=== PATIENT | male | born 1995 | race Caucasian/White ===

== ENCOUNTER 2024-07-25 17:39 | Inpatient (IN) | payer BC, MEDICAID, SELFPAY ==
[2024-07-25 17:43] VITALS: BP 124/78; PULSE 119; RESP 18; TEMP 37.3; O2SAT 96; BMI 25.8
[2024-07-25 17:50] VITALS: BP 124/78; PULSE 119; RESP 18; TEMP 37.3; O2SAT 96
--- NOTE | 2024-07-25 17:51 | W.ED.PSYCHS ---
HPI - Psych General: Chief Complaint: Psychiatric Symptoms Stated Complaint: MHE Time Seen by Provider: 07/25/24 17:49 Source: EMS Mode of arrival: EMS Limitations: altered mental status History of Present Illness: Patient is a 29-year-old male who arrives to the ED today via EMS for evaluation of schizophrenia and psychosis. Patient states he believes that he is God and that the lights are radiating him. Upon my arrival patient is seated with his eyes closed with his hands together up in the air. He is mute to the majority of my questioning. He randomly will look up at the radha and begin talking and questioning the actions of God. He actively is speaking to things/people that are not there. He reportedly told EMS he has a history of schizophrenia and not taking medications. MD complaint: altered mental status Onset (ago): unknown Related Data Allergies Allergy/AdvReac Type Severity Reaction Status Date / Time Unable to Assess Allergy Unverified 07/25/24 17:48 Review of Systems General: Reports: ROS unobtainable due to mental status Physical Exam Const: COMMON NORMALS: average body habitus, healthy appearing, alert and well nourished EXAM LIMITATIONS: behavioral limitations ORIENTATION/CONSCIOUSNESS: Yes awake Neuro: SENSORIUM/ORIENTATION: Yes alert Psych: APPEARANCE: Yes grossly normal ATTITUDE: Yes bizarre ACTIVITY/MOTOR BEHAVIOR: Yes disorganized behavior THOUGHT PROCESS: disorganized ATTENTION/CONCENTRATION: Yes attention grossly impaired and Yes concentration grossly impaired MEMORY/COGNITION: Yes memory grossly impaired and Yes cognition grossly impaired INSIGHT: Poor insight present (Psych) JUDGEMENT: Poor judgement present (Psych) Course Consultations: Consultation #1: Dr. Ron-accepts to NPU Vital Signs: Vital signs: Vital Signs Temperature 99.2 F 07/25/24 17:50 Pulse Rate 119 H 07/25/24 17:50 Respiratory Rate 18 07/25/24 17:50 Blood Pressure 124/78 07/25/24 17:50 Pulse Oximetry 96 07/25/24 17:50 Oxygen Delivery Me thod Room Air 07/25/24 17:50 MDM - Psych Medical Decision Making Patient will be admitted to NPU once cleared medically for evaluation/treatment of his psychosis. Patient was placed on a 96 hour hold. Differential Diagnosis Likely acute psychosis Medical Records I reviewed the patient's medical records. Lab Data I reviewed the patient's lab results. 07/25/24 19:05 07/25/24 19:05 Laboratory Results WBC 18.47 10^3/uL (3.29-11.43) H 07/25/24 19:05 RBC 5.30 10^6/uL (3.85-5.65) 07/25/24 19:05 Hgb 15.90 g/dL (11.27-16.99) 07/25/24 19:05 Hct 46.4 % (37-53) 07/25/24 19:05 MCV 87.5 fl (82-101) 07/25/24 19:05 MCH 30.0 pg (27-33) 07/25/24 19:05 MCHC 34.3 g/dL (30-55) 07/25/24 19:05 RDW 12.1 % (12.1-15.1) 07/25/24 19:05 Plt Count 326 10^3/cmm (157-399) 07/25/24 19:05 MPV 9.1 fL (7.4-10.4) 07/25/24 19:05 Neut % (Auto) 74.6 % 07/25/24 19:05 Lymph % (Auto) 15.2 % 07/25/24 19:05 [place] % (Auto) 7.6 % 07/25/24 19:05 Eos % (Auto) 1.7 % 07/25/24 19:05 Baso % (Auto) 0.5 % 07/25/24 19:05 Neut # (Auto) 13.78 10^3/uL (1.8-7.7) H 07/25/24 19:05 Lymph # (Auto) 2.8 10^3/uL (0.8-4.8) 07/25/24 19:05 [place] # (Auto) 1.4 10^3/uL (0.2-0.9) H 07/25/24 19:05 Eos # (Auto) 0.3 10^3/uL (0.0-0.8) 07/25/24 19:05 Baso # (Auto) 0.1 10^3/uL (0.0-0.1) 07/25/24 19:05 Nucleated RBC % (auto) 0 % 07/25/24 19:05 Nucleated RBCs # 0.0 /100WBC 07/25/24 19:05 Sodium 142 mmol/L (136-145) 07/25/24 19:05 Potassium 3.9 mmol/L (3.5-5.1) 07/25/24 19:05 Chloride 100 mmol/L (98-107) 07/25/24 19:05 Carbon Dioxide 26 mmol/L (22-29) 07/25/24 19:05 Anion Gap 19.9 (5-19) H 07/25/24 19:05 BUN 16 mg/dL (6-20) 07/25/24 19:05 Creatinine 1.2 mg/dL (0.7-1.2) 07/25/24 19:05 GFR Calculation 72.1 mL/min (90-130) L 07/25/24 19:05 Glucose 99 mg/dL (65-115) 07/25/24 19:05 Calculated Osmolality 295 mOsm/kg (285-295) 07/25/24 19:05 Calcium 10.0 mg/dL (8.5-10.5) 07/25/24 19:05 Total Bilirubin 0.6 mg/dL (0.15-1.2) 07/25/24 19:05 AST 48 U/L (0-40) H 07/25/24 19:05 ALT 37 U/L (0-41) 07/25/24 19:05 Alkaline Phosphatase 128 U/L (40-130) 07/25/24 19:05 Total Protein 8.1 g/dL (6.6-8.7) 07/25/24 19:05 Albumin 4.9 g/dL (3.5-5.2) 07/25/24 19:05 Globulin 3.2 g/dL (1.3-4.6) 07/25/24 19:05 Salicylates < 0.3 mg/dL (3-10) L 07/25/24 19:05 Acetaminophen < 5.0 ug/mL (10-30) L 07/25/24 19:05 Ethyl Alcohol < 10 mg/dL (0-10) 07/25/24 19:05 No radiology studies performed this visit Discharge Plan Discharge Patient Disposition: Admitted As Inpatient Admit Provider: Brody Ron Clinical Impression: Acute psychosis Condition: Stable Coding Level of Care Code ED Configuration Developer for Vinicius Van
[2024-07-25] MEDS: haloperidol inj 5 mg/mL INJ 1 mL IM (18:31)
--- NOTE | 2024-07-25 18:32 | PC.NURSE ---
PATIENT VERY ACTIVE IN ROOM. PATIENT UNWILLING TO SIT STILL FOR BLOOD DRAW. PATIENT STATES THAT I AM GOD. PATIENT GIVEN HALOPERIDOL.
--- NOTE | 2024-07-25 18:40 | PC.NURSE ---
Attempted to read 96 hour hold rights. Patient is currently having auditory and visual hallucinations and is continuing to talk to someone that is not there while attempting to read his rights to him. A copy of rights was given to patient. Patient became agitated and started yelling at the ceiling God why wont you do this to them instead. Patient is incapable of comprehension of rights being served.
[2024-07-25 19:10] LABS: Basophils # 0.1 10^3/uL (0.0-0.1); Basophils % 0.5 %; Eosinophils # 0.3 10^3/uL (0.0-0.8); Eosinophils % 1.7 %; Hematocrit 46.4 % (37-53); Lymphocytes # 2.8 10^3/uL (0.8-4.8); Lymphocytes % 15.2 %; Mean Corpuscular HGB Conc 34.3 g/dL (30-55); Mean Corpuscular Volume 87.5 fl (82-101); Mean Platelet Volume 9.1 fL (7.4-10.4); Monocytes # 1.4 10^3/uL (0.2-0.9); Monocytes % 7.6 %; Neutrophils # 13.78 10^3/uL (1.8-7.7); Neutrophils % 74.6 %; Nucleated Red Blood Cells % 0 %; Platelet Count 326 10^3/cmm (157-399); Red Cell Distribution Width 12.1 % (12.1-15.1); White Blood Count 18.47 10^3/uL (3.29-11.43)
[2024-07-25 19:26] LABS: Alanine Aminotransferase 37 U/L (0-41); Albumin Level 4.9 g/dL (3.5-5.2); Alkaline Phosphatase 128 U/L (40-130); Anion Gap 19.9 (5-19); Aspartate Amino Transferase 48 U/L (0-40); Blood Urea Nitrogen 16 mg/dL (6-20); Carbon Dioxide 26 mmol/L (22-29); Chloride 100 mmol/L (98-107); Creatinine Clr Calc Pharmacy 93.1835; Globulin 3.2 g/dL (1.3-4.6); Glomerular Filtration Rate 72.1 mL/min (90-130); Glucose 99 mg/dL (65-115); Osmolality Calculated 295 mOsm/kg (285-295); Potassium 3.9 mmol/L (3.5-5.1); Sodium 142 mmol/L (136-145); Total Bilirubin 0.6 mg/dL (0.15-1.2); Total Protein 8.1 g/dL (6.6-8.7)
[2024-07-25 19:32] LABS: Acetaminophen < 5.0 ug/mL (10-30); Alcohol Level < 10 mg/dL (0-10); Salicylate < 0.3 mg/dL (3-10)
[2024-07-25 21:16] VITALS: BP 114/73; PULSE 72; RESP 14; TEMP 36.3; O2SAT 98
[2024-07-25 21:28] VITALS: BP 114/73; PULSE 72; RESP 14; O2SAT 98
[2024-07-25 21:35] VITALS: BP 99/60; PULSE 98; RESP 20; O2SAT 98
[2024-07-25 22:00] VITALS: BP 99/60; PULSE 98; RESP 20; O2SAT 98
[2024-07-26 06:00] VITALS: BP 106/67; PULSE 68; RESP 16; O2SAT 100
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
--- NOTE | 2024-07-26 08:55 | PC.NURSE ---
PT GOES TO ROOM AND TRIED TO EVADE RN AND ASSESSMENT QUESTIONS. PT IS EVASIVE WITH QUESTIONS AND ASSESSMENT. DENIES SI/HI AND AVH AT THIS TIME. RATES ANXIETY 0/10 AND DEPRESSION 8/10. REPORTS HE SLEPT WELL LAST NIGHT. DENIES PAIN. PT STATES GOAL TODAY IS TO SLEEP. ALL QUESTIONS ANSWERED AND SUPPORT VOICED.
[2024-07-26 14:00] VITALS: BP 129/96; PULSE 117; RESP 20; TEMP 36.6; O2SAT 98
[2024-07-26 20:27] VITALS: BP 99/70; PULSE 76; RESP 18; TEMP 36.7; O2SAT 97
[2024-07-27 06:00] VITALS: BP 120/75; PULSE 80; RESP 16; TEMP 36.9; O2SAT 98
[2024-07-27] MEDS: nicotine 2 mg Gum BUCCAL (11:13)
[2024-07-27 11:15] LABS: Amphetamines Screen Urine Positive (Negative); Barbiturates Screen Urine Negative (Negative); Benzodiazepines Screen Urine Negative (Negative); Cocaine Screen Urine Negative (Negative); Opiate Screen Urine Negative (Negative); PCP Screen Urine Negative (Negative); THC Screen Urine Positive (Negative)
[2024-07-27 14:00] VITALS: BP 126/92; PULSE 81; RESP 18; TEMP 37.1; O2SAT 95
--- NOTE | 2024-07-27 16:41 | W.PM.NPUPNS ---
Subjective NPU Subjective: Patient presented today reporting that he needed to be discharged and there was no reason for him to be there. He was overly emotional and crying and at times wailing per staff reports and direct observation. He was reporting significant psychotic content as he reported odd beliefs about the son and the wilson and maloney that human beings have for teleportation. He was often not making sense per staff reports which is also seen on interview. He continues to believe there is nothing wrong with him and there is no need for medication. Mental Status Exam MSE Comments: This is an slender, well-developed [place] male in hospital scrubs with limited grooming and eye contact. No abnormal movements except for psychomotor agitation. Cooperative with exam in mild to moderate distress. Speech was slightly increased rate and normal volume. Mood described fine, affect irritable and guarded. Thought process was linear and mostly organized. Thought content: Patient denied suicidal or homicidal ideation , there were no delusions reported but concerns for hyperreligious, grandiose, paranoid or persecutory delusions noted, he denied visual but endorsed auditory hallucinations, but endorsed some situations likely consistent with auditory or visual hallucinations.The patient denies having suicidal thoughts, self-injurious behavior, paranoia, hearing voices, or seeing things. He does not have nightmares or flashbacks. He reports feeling annoyed and believes he was unjustly brought to the hospital. He denies having thoughts of hurting or killing others. Attention and concentration were mostly intact and memory appeared unreliable but none were formally tested. He is alert and oriented x 3. Insight, judgment and impulse control impaired. Vitals/I&O/Wt Last Vital Signs Temp 98.8 F 07/27/24 14:00 Pulse 81 07/27/24 14:00 Resp 18 07/27/24 14:00 BP 126/92 07/27/24 14:00 Pulse Ox 95 07/27/24 14:00 O2 Del Method Room Air 07/25/24 21:35 Weight last 48 hrs Weight 77.111 kg Data NPU 07/25/24 19:05 07/25/24 19:05 A&P Assessment and plan (1) Acute psychosis: (2) History of schizophrenia: (3) Cannabis use disorder: (4) History of ADHD: Plan This is a 29-year-old Citizen [place] male who presented on a 96-hour hold secondary to some praying in public that got noticed for its significant loudness or oddness. The patient has a history of schizophrenia, ADHD, and depression. He is currently off his medication for schizophrenia and expresses a desire to restart it. He denies having schizophrenia and believes he has a direct connection with the spiritual realm. He has a history of drug use and has been to rehab twice. He is currently unemployed and lives with others. 1. Consider antipsychotic 2. Continue every 15 minute observation. 3. Encourage individual, group and milieu therapies. 4. Obtain collateral information on what his baseline actually is. 5. Encourage sober living treatment after discharge at the highest level of care to which he is willing to commit. 6. UDS returned positive for cannabis and methamphetamine. Attestations U Medical Necessity Statement*: Inpatient hospitalization is medically necessary and the clinically appropriate intervention at this time. We will monitor medication to make changes as indicated. His likely length of stay 3-5 days. Coding Level of Care Code Acute Code for [facility] Fw Diagnoses Acute psychosis F23 History of schizophrenia Z86.59 Cannabis use disorder F12.90 History of ADHD Z86.59
[2024-07-27 22:00] VITALS: RESP 16
[2024-07-28 06:00] VITALS: BP 108/68; PULSE 74; RESP 16; O2SAT 97
--- NOTE | 2024-07-28 09:30 | W.PM.NPUPNS ---
Subjective NPU Subjective: Patient presented today reporting that he is not supposed to be here. We discussed the fact that his current trajectory makes his possible discharge on Tuesday unlikely. He ultimately allowed his medications to be restarted after discussion of the risks, benefits and alternatives he understood and agreed to proceed as is documented in this note. He continues to have limited insight per staff reports and direct observation. Mental Status Exam MSE Comments: This is an slender, well-developed [place] male in hospital scrubs with limited grooming and eye contact. No abnormal movements except for significant psychomotor agitation. Cooperative with exam in moderate to extreme distress. Speech was slightly increased rate and normal volume. Mood described fine, affect irritable and guarded. Thought process was linear and mostly organized. Thought content: Patient denied suicidal or homicidal ideation , there were no delusions reported but concerns for hyperreligious, grandiose, paranoid or persecutory delusions noted, he denied visual but endorsed auditory hallucinations, but endorsed some situations likely consistent with auditory or visual hallucinations.The patient denies having suicidal thoughts, self-injurious behavior, paranoia, hearing voices, or seeing things. He does not have nightmares or flashbacks. He reports feeling annoyed and believes he was unjustly brought to the hospital. He denies having thoughts of hurting or killing others. Attention and concentration were mostly intact and memory appeared unreliable but none were formally tested. He is alert and oriented x 3. Insight, judgment and impulse control impaired. Vitals/I&O/Wt Last Vital Signs Temp 98.8 F 07/27/24 14:00 Pulse 74 07/28/24 06:00 Resp 16 07/28/24 06:00 BP 108/68 07/28/24 06:00 Pulse Ox 97 07/28/24 06:00 O2 Del Method Room Air 07/28/24 06:00 Data NPU 07/25/24 19:05 07/25/24 19:05 A&P Assessment and plan (1) Acute psychosis: (2) History of schizophrenia: (3) Cannabis use disorder: (4) History of ADHD: Plan This is a 29-year-old [place] male who presented on a 96-hour hold secondary to some praying in public that got noticed for its significant loudness or oddness. The patient has a history of schizophrenia, ADHD, and depression. He is currently off his medication for schizophrenia and expresses a desire to restart it. He denies having schizophrenia and believes he has a direct connection with the spiritual realm. He has a history of drug use and has been to rehab twice. He is currently unemployed and lives with others. 1. Restarted previous medications. 2. Continue every 15 minute observation. 3. Encourage individual, group and milieu therapies. 4. Obtain collateral information on what his baseline actually is. 5. Encourage sober living treatment after discharge at the highest level of care to which he is willing to commit. 6. UDS returned positive for cannabis and methamphetamine. Attestations U Medical Necessity Statement*: Inpatient hospitalization is medically necessary and the clinically appropriate intervention at this time. We will monitor medication to make changes as indicated. His likely length of stay 4-6 days. Coding Level of Care Code Acute Code for [facility] Fwd Diagnoses Acute psychosis F23 History of schizophrenia Z86.59 Cannabis use disorder F12.90 History of ADHD Z86.59
--- NOTE | 2024-07-28 10:59 | PC.NURSE ---
Patient requesting medications for sleep. This nurse informed patient that we can't give sleeping medications during the day. Patient has been tearful. Patient appears to be comforted by another patient.
--- NOTE | 2024-07-28 12:09 | PC.NURSE ---
This nurse took patients outside. While this patient was outside, patient pointed at the radha and stated, that is not our sun. It is too small to be our sun.
[2024-07-28] MEDS: nicotine 2 mg Gum BUCCAL ×2 (12:32→17:37)
[2024-07-28] MEDS: OLANZapine 5 mg ODT PO (12:50)
[2024-07-28] MEDS: LORazepam 2 mg Tablet PO (13:21)
[2024-07-28 14:00] VITALS: BP 123/85; PULSE 90; RESP 17; TEMP 36.7; O2SAT 99
[2024-07-28] MEDS: OLANZapine 10 mg TABLET PO (21:20)
[2024-07-28] MEDS: hyDROXYzine 25 mg Capsule 50 MG PO (21:22)
[2024-07-28] MEDS: trazodone 50 mg Tablet PO (21:22)
[2024-07-28 21:52] VITALS: BP 105/69; PULSE 80; RESP 17; O2SAT 97
[2024-07-29 06:00] VITALS: BP 97/67; PULSE 82; RESP 16; O2SAT 98
[2024-07-29 14:00] VITALS: BP 134/84; PULSE 100; RESP 18; TEMP 36.6; O2SAT 99
[2024-07-29] MEDS: sertraline 50 mg Tablet PO (14:13)
--- NOTE | 2024-07-29 19:10 | P.NPUPN_ITS ---
Subjective NPU 2 Subjective: Patient presented today reporting that he is feeling pretty good. He was less irritable per staff reports and direct observation. He continued to maintain the same conspiracy theories and beliefs of multiple dimensions, projections and spent most of the time talking about his brother who is a time traveler and that ultimately we agreed to be merged with technology and become [employer]. His behavior lacked the irritability that he did at presentation, but his psychosis continued to be prominent. He denied any side effects to the medications. He continued to focus on discharge and lack insight into his condition. Mental Status Exam 2 MSE Comments: This is an slender, well-developed [place] male in hospital scrubs with adequate grooming and eye contact. No abnormal movements except for psychomotor agitation. Cooperative with exam in mild distress. Speech was slightly increased rate and normal volume. Mood described fine, affect less irritable or guarded. Thought process was linear and mostly organized. Thought content: Patient denied suicidal or homicidal ideation, there were no delusions reported but significant presents of hyperreligious, grandiose, paranoid or persecutory delusions noted, he was full of continued conspiracies about being taken over by AI etc., he did not report visual or auditory hallucinations, but endorsed some situations likely consistent with auditory or visual hallucinations. The patient denies having suicidal thoughts, self-injurious behavior, paranoia, hearing voices, or seeing things. He does not have nightmares or flashbacks. Attention and concentration were mostly intact and memory appeared unreliable but none were formally tested. He is alert and oriented x 3. Insight, judgment and impulse control impaired. Vitals/I&O/Wt Last Vital Signs Temp 97.8 F 07/29/24 14:00 Pulse 100 07/29/24 14:00 Resp 18 07/29/24 14:00 BP 134/84 07/29/24 14:00 Pulse Ox 99 07/29/24 14:00 O2 Del Method Room Air 07/29/24 06:00 Weight last 48 hrs Weight 68.946 kg Data NPU 07/25/24 19:05 07/25/24 19:05 A&P Assessment and plan (1) Acute psychosis: (2) History of schizophrenia: (3) Cannabis use disorder: (4) History of ADHD: Plan This is a 29-year-old [place] male who presented on a 96-hour hold secondary to some praying in public that got noticed for its significant loudness or oddness. The patient has a history of schizophrenia, ADHD, and depression. He is currently off his medication for schizophrenia and expresses a desire to restart it. He denies having schizophrenia and believes he has a direct connection with the spiritual realm. He has a history of drug use and has been to rehab twice. He is currently unemployed and lives with others. 1. Restarted previous medications. May need to consider whether he needs to be switched to a different antipsychotic or whether he should be ultimately placed on long-acting Zyprexa if it proves to be effective. 2. Continue every 15 minute observation. 3. Encourage individual, group and milieu therapies. 4. Obtain collateral information on what his baseline actually is. 5. Encourage sober living treatment after discharge at the highest level of care to which he is willing to commit. 6. UDS returned positive for cannabis and methamphetamine. 7. Will likely need a 21-day hold filed given his level of psychosis. Attestations NPU 2 Medical Necessity Statement*: Inpatient hospitalization is medically necessary and the clinically appropriate intervention at this time. We will monitor medication to make changes as indicated. His likely length of stay 7-10 days. Coding Level of Care Code Acute Code for [facility] Fwd Diagnoses Acute psychosis F23 History of schizophrenia Z86.59 Cannabis use disorder F12.90 History of ADHD Z86.59
[2024-07-29] MEDS: hyDROXYzine 25 mg Capsule 50 MG PO (20:02)
[2024-07-29] MEDS: trazodone 50 mg Tablet PO (20:03)
[2024-07-29] MEDS: OLANZapine 10 mg TABLET PO (20:03)
[2024-07-29 20:04] VITALS: BP 106/68; PULSE 74; RESP 17; TEMP 36.9; O2SAT 98
[2024-07-30 06:00] VITALS: BP 128/90; PULSE 60; RESP 18; TEMP 36.6; O2SAT 97
[2024-07-30] MEDS: sertraline 50 mg Tablet PO (08:32)
[2024-07-30] MEDS: nicotine 2 mg Gum BUCCAL ×2 (12:58→16:58)
[2024-07-30 14:00] VITALS: BP 95/64; PULSE 79; RESP 17; TEMP 37; O2SAT 98
--- NOTE | 2024-07-30 16:21 | P.NPUPN_ITS ---
Subjective NPU 2 Subjective: Patient presented today reporting that he is doing okay. He endorsed significant difficulties with not being able to be at his home but could not seem to understand our concerns about his psychosis. He was very focused on being discharged and gave us some numbers we could reach out to. We agreed that we would talk again in the morning about whether or not there is a plan to discharge him or file for a 21-day hold. He denied any side effects to the medication. Mental Status Exam 2 MSE Comments: This is an slender, well-developed [place] male in hospital scrubs with adequate grooming and eye contact. No abnormal movements except for psychomotor agitation. Cooperative with exam in mild distress. Speech was slightly increased rate and normal volume. Mood described fine, affect less irritable or guarded. Thought process was linear and mostly organized. Thought content: Patient denied suicidal or homicidal ideation, there were no delusions reported but significant presents of hyperreligious, grandiose, paranoid or persecutory delusions noted, he was full of continued conspiracies about being taken over by AI etc., he did not report visual or auditory hallucinations, but endorsed some situations likely consistent with auditory or visual hallucinations. The patient denies having suicidal thoughts, self-injurious behavior, paranoia, hearing voices, or seeing things. He does not have nightmares or flashbacks. Attention and concentration were mostly intact and memory appeared unreliable but none were formally tested. He is alert and oriented x 3. Insight, judgment and impulse control impaired. Vitals/I&O/Wt Last Vital Signs Temp 98.6 F 07/30/24 14:00 Pulse 66 07/30/24 19:56 Resp 18 07/30/24 19:56 BP 130/85 07/30/24 19:56 Pulse Ox 97 07/30/24 19:56 O2 Del Method Room Air 07/29/24 06:00 Weight last 48 hrs Weight 68.946 kg Data NPU 07/25/24 19:05 07/25/24 19:05 A&P Assessment and plan (1) Acute psychosis: (2) History of schizophrenia: (3) Cannabis use disorder: (4) History of ADHD: Plan This is a 29-year-old [place] male who presented on a 96-hour hold secondary to some praying in public that got noticed for its significant loudness or oddness. The patient has a history of schizophrenia, ADHD, and depression. He is currently off his medication for schizophrenia and expresses a desire to restart it. He denies having schizophrenia and believes he has a direct connection with the spiritual realm. He has a history of drug use and has been to rehab twice. He is currently unemployed and lives with others. 1. Restarted previous medications. May need to consider whether he needs to be switched to a different antipsychotic or whether he should be ultimately placed on long-acting Zyprexa if it proves to be effective. 2. Continue every 15 minute observation. 3. Encourage individual, group and milieu therapies. 4. Obtain collateral information on what his baseline actually is. Had some success connecting with resources but none that have contemporaneous information just people at this point did not know him in the past. 5. Encourage sober living treatment after discharge at the highest level of care to which he is willing to commit. 6. UDS returned positive for cannabis and methamphetamine. 7. Will likely need a 21-day hold filed given his level of psychosis. Attestations NPU 2 Medical Necessity Statement*: Inpatient hospitalization is medically necessary and the clinically appropriate intervention at this time. We will monitor medication to make changes as indicated. His likely length of stay 7-10 days. Coding Level of Care Code Acute Code for [facility] Fwd Diagnoses Acute psychosis F23 History of schizophrenia Z86.59 Cannabis use disorder F12.90 History of ADHD Z86.59
[2024-07-30 19:56] VITALS: BP 130/85; PULSE 66; RESP 18; O2SAT 97
[2024-07-30] MEDS: trazodone 50 mg Tablet PO (20:24)
[2024-07-30] MEDS: OLANZapine 10 mg TABLET PO (20:24)
[2024-07-31 06:00] VITALS: BP 109/66; PULSE 74; RESP 16; TEMP 36.7; O2SAT 98
[2024-07-31] MEDS: sertraline 50 mg Tablet PO (09:26)
[2024-07-31] MEDS: nicotine 2 mg Gum BUCCAL (09:26)
[2024-07-31] MEDS: nicotine 4 mg lozenge MUCOUS MEM ×3 (11:52→15:30)
[2024-07-31 14:00] VITALS: BP 140/94; PULSE 88; RESP 16; TEMP 36.8; O2SAT 98
--- NOTE | 2024-07-31 14:21 | PC.NURSE ---
Patient served with [address] paperwork[address] Patient very irritated that he may potentially have to stay here longer per a court order. He has stated multiple times that he is not psychotic and that he is being discriminated against because he is brown . Staff reassured him that we do not discriminate and we are looking out for what is in his best interests. He insisted that the doctor and staff are lying about him being psychotic and initially refusing medications, which is untrue. Patient currently on the phone calling various numbers to ask who he can appeal to to change this. Security present at this time.
[2024-07-31] MEDS: hyDROXYzine 25 mg Capsule 50 MG PO (15:30)
--- NOTE | 2024-07-31 16:08 | P.NPUPN_ITS ---
Subjective NPU 2 Subjective: Patient presented today reporting that he is doing okay. He was finally able to acknowledge that he was using methamphetamine and using other drugs per staff report and direct conversation. He was able to except the fact that he is in a situation where for him to be well he needs to engage in sober living treatment and he is going to work with the social work team to find an appropriate entity or facility to engage in treatment. We discussed the risks, benefits and alternatives of him starting Strattera 40 mg p.o. daily and he understood and agreed to proceed as is documented in this note. He denies any side effects to his medication. Mental Status Exam 2 MSE Comments: This is an slender, well-developed [place] male in hospital scrubs with adequate grooming and eye contact. No abnormal movements except for psychomotor agitation. Cooperative with exam in mild distress. Speech was slightly increased rate and normal volume. Mood described fine, affect less irritable or guarded. Thought process was linear and mostly organized. Thought content: Patient denied suicidal or homicidal ideation, there were no delusions reported but significant presents of hyperreligious, grandiose, paranoid or persecutory delusions noted, he was full of continued conspiracies about being taken over by AI etc., he did not report visual or auditory hallucinations, but endorsed some situations likely consistent with auditory or visual hallucinations. The patient denies having suicidal thoughts, self-injurious behavior, paranoia, hearing voices, or seeing things. He does not have nightmares or flashbacks. Attention and concentration were mostly intact and memory appeared unreliable but none were formally tested. He is alert and oriented x 3. Insight, judgment and impulse control impaired. Vitals/I&O/Wt Last Vital Signs Temp 98.0 F 07/31/24 06:00 Pulse 74 07/31/24 06:00 Resp 16 07/31/24 06:00 BP 109/66 07/31/24 06:00 Pulse Ox 98 07/31/24 06:00 O2 Del Method Room Air 07/29/24 06:00 Data NPU 07/25/24 19:05 07/25/24 19:05 A&P Assessment and plan (1) Acute psychosis: (2) History of schizophrenia: (3) Cannabis use disorder: (4) History of ADHD: Plan This is a 29-year-old Citizen [place] male who presented on a 96-hour hold secondary to some praying in public that got noticed for its significant loudness or oddness. The patient has a history of schizophrenia, ADHD, and depression. He is currently off his medication for schizophrenia and expresses a desire to restart it. He denies having schizophrenia and believes he has a direct connection with the spiritual realm. He has a history of drug use and has been to rehab twice. He is currently unemployed and lives with others. 1. Restarted previous medications. May need to consider whether he needs to be switched to a different antipsychotic or whether he should be ultimately placed on long-acting Zyprexa if it proves to be effective. Start Strattera 40 mg p.o. daily 2. Continue every 15 minute observation. 3. Encourage individual, group and milieu therapies. 4. Obtain collateral information on what his baseline actually is. Had some success connecting with resources but none that have contemporaneous information just people at this point did not know him in the past. 5. Encourage sober living treatment after discharge at the highest level of care to which he is willing to commit. 6. UDS returned positive for cannabis and methamphetamine. 7. Will likely need a 21-day hold filed given his level of psychosis. Filed for 21-day hold. Attestations NPU 2 Medical Necessity Statement*: Inpatient hospitalization is medically necessary and the clinically appropriate intervention at this time. We will monitor medication to make changes as indicated. His likely length of stay 6-9 days. Coding Level of Care Code Acute Code for [facility] Fwd Diagnoses Acute psychosis F23 History of schizophrenia Z86.59 Cannabis use disorder F12.90 History of ADHD Z86.59
[2024-07-31] MEDS: OLANZapine 5 mg ODT PO (17:22)
[2024-07-31] MEDS: OLANZapine 10 mg TABLET PO (20:13)
[2024-07-31] MEDS: trazodone 50 mg Tablet PO (20:13)
[2024-07-31 20:24] VITALS: BP 123/77; PULSE 18; RESP 18; TEMP 37; O2SAT 100
[2024-08-01 06:00] VITALS: BP 111/71; PULSE 66; RESP 18; TEMP 36.5; O2SAT 98
[2024-08-01] MEDS: sertraline 50 mg Tablet PO (08:01)
[2024-08-01] MEDS: atomoxetine 40 mg Capsule PO (08:05)
[2024-08-01] MEDS: nicotine 4 mg lozenge MUCOUS MEM ×5 (08:33→19:56)
[2024-08-01 14:00] VITALS: BP 119/83; PULSE 95; RESP 18; TEMP 36.7; O2SAT 98
--- NOTE | 2024-08-01 14:00 | W.PM.NPUPNS ---
Subjective NPU Subjective: Patient presented today reporting that he is doing fine. He reports that he will not be going to the 21-day hold hearing today. He did endorse doing some research and determining that he can go to a correction like [facility] [employer] [facility] We discussed the fact that we did not think that was a good idea and that he needs to first get better from the standpoint of his psychosis and second he needs some greater structure than a correction would provide. We discussed that we would talk again later after the hearing. Mental Status Exam MSE Comments: This is an slender, well-developed [place] male in hospital scrubs with adequate grooming and eye contact. No abnormal movements except for psychomotor agitation. Cooperative with exam in mild distress. Speech was slightly increased rate and normal volume. Mood described fine, affect less irritable or guarded. Thought process was linear and mostly organized. Thought content: Patient denied suicidal or homicidal ideation, there were no delusions reported but significant signs of hyperreligious, grandiose, paranoid or persecutory delusions noted, he was full of continued conspiracies about being taken over by AI etc., he did not report visual or auditory hallucinations, but endorsed some situations likely consistent with auditory or visual hallucinations. The patient denies having suicidal thoughts, self-injurious behavior, paranoia, hearing voices, or seeing things. He does not have nightmares or flashbacks. Attention and concentration were mostly intact and memory appeared unreliable but none were formally tested. He is alert and oriented x 3. Insight, judgment and impulse control impaired. Vitals/I&O/Wt Last Vital Signs Temp 98.0 F 08/01/24 14:00 Pulse 95 08/01/24 14:00 Resp 18 08/01/24 14:00 BP 119/83 08/01/24 14:00 Pulse Ox 98 08/01/24 14:00 O2 Del Method Room Air 08/01/24 06:00 Data NPU 07/25/24 19:05 07/25/24 19:05 A&P Assessment and plan (1) Acute psychosis: (2) History of schizophrenia: (3) Cannabis use disorder: (4) History of ADHD: Plan This is a 29-year-old [place] male who presented on a 96-hour hold secondary to some praying in public that got noticed for its significant loudness or oddness. The patient has a history of schizophrenia, ADHD, and depression. He is currently off his medication for schizophrenia and expresses a desire to restart it. He denies having schizophrenia and believes he has a direct connection with the spiritual realm. He has a history of drug use and has been to rehab twice. He is currently unemployed and lives with others. 1. Restarted previous medications. May need to consider whether he needs to be switched to a different antipsychotic or whether he should be ultimately placed on long-acting Zyprexa if it proves to be effective. Started Strattera 40 mg p.o. daily 2. Continue every 15 minute observation. 3. Encourage individual, group and milieu therapies. 4. Obtain collateral information on what his baseline actually is. Had some success connecting with resources but none that have contemporaneous information just people at this point did not know him in the past. 5. Encourage sober living treatment after discharge at the highest level of care to which he is willing to commit. 6. UDS returned positive for cannabis and methamphetamine. 7. Will likely need a 21-day hold filed given his level of psychosis. Filed for 21-day hold. 21-day hold hearing today. Attestations U Medical Necessity Statement*: Inpatient hospitalization is medically necessary and the clinically appropriate intervention at this time. We will monitor medication to make changes as indicated. His likely length of stay 6-9 days. Coding Level of Care Code Acute Code for [facility] Fwd Diagnoses Acute psychosis F23 History of schizophrenia Z86.59 Cannabis use disorder F12.90 History of ADHD Z86.59
[2024-08-01] MEDS: trazodone 50 mg Tablet PO (20:46)
[2024-08-01] MEDS: OLANZapine 10 mg TABLET PO (20:46)
[2024-08-01] MEDS: OLANZapine 5 mg ODT PO (21:11)
[2024-08-02 06:00] VITALS: BP 112/72; PULSE 86; RESP 18; O2SAT 99
--- NOTE | 2024-08-02 08:55 | P.NPUPN_ITS ---
Subjective NPU 2 Subjective: Patient presents today reporting that he is fine. He continues to ride a roller coaster with moments of clear conversation about the challenges of his situation and the need for substance abuse treatment followed by very paranoid and aggressive moments of feeling that everyone is against him per staff reports and direct observation. This morning he reports that he is sorry for his aggressive paranoid behaviors last night but then immediately went to the point of contention which is that he should be discharged to the programming right away because he is fine. We discussed wanting to see him have greater stability before we discharged him any program. He denied any side effects to the medication. Mental Status Exam 2 MSE Comments: This is an slender, well-developed [place] male in hospital scrubs with adequate grooming and eye contact. No abnormal movements except for psychomotor agitation. Cooperative with exam in mild distress. Speech was slightly increased rate and normal volume. Mood described apologetic for my outburst last night, affect less irritable or guarded. Thought process was linear and mostly organized. Thought content: Patient denied suicidal or homicidal ideation, there were no delusions reported but significant signs of hyperreligious, grandiose, paranoid or persecutory delusions noted, he was full of continued conspiracies about being taken over by AI etc., he did not report visual or auditory hallucinations, but endorsed some situations likely consistent with auditory or visual hallucinations. The patient denies having suicidal thoughts, self-injurious behavior, paranoia, hearing voices, or seeing things. He does not have nightmares or flashbacks. Attention and concentration were mostly intact and memory appeared unreliable but none were formally tested. He is alert and oriented x 3. Insight, judgment and impulse control impaired. Vitals/I&O/Wt Last Vital Signs Temp 98.0 F 08/01/24 14:00 Pulse 86 08/02/24 06:00 Resp 18 08/02/24 06:00 BP 112/72 08/02/24 06:00 Pulse Ox 99 08/02/24 06:00 O2 Del Method Room Air 08/01/24 06:00 Data NPU 07/25/24 19:05 07/25/24 19:05 A&P Assessment and plan (1) Acute psychosis: (2) History of schizophrenia: (3) Cannabis use disorder: (4) History of ADHD: Plan This is a 29-year-old [place]alese male who presented on a 96-hour hold secondary to some praying in public that got noticed for its significant loudness or oddness. The patient has a history of schizophrenia, ADHD, and depression. He is currently off his medication for schizophrenia and expresses a desire to restart it. He denies having schizophrenia and believes he has a direct connection with the spiritual realm. He has a history of drug use and has been to rehab twice. He is currently unemployed and lives with others. 1. Restarted previous medications. May need to consider whether he needs to be switched to a different antipsychotic or whether he should be ultimately placed on long-acting Zyprexa if it proves to be effective. Started Strattera 40 mg p.o. daily 2. Continue every 15 minute observation. 3. Encourage individual, group and milieu therapies. 4. Obtain collateral information on what his baseline actually is. Had some success connecting with resources but none that have contemporaneous information just people at this point did not know him in the past. 5. Encourage sober living treatment after discharge at the highest level of care to which he is willing to commit. 6. UDS returned positive for cannabis and methamphetamine. 7. Will likely need a 21-day hold filed given his level of psychosis. Filed for 21-day hold. Patient placed on 21-day hold yesterday. Attestations NPU 2 Medical Necessity Statement*: Inpatient hospitalization is medically necessary and the clinically appropriate intervention at this time. We will monitor medication to make changes as indicated. His likely length of stay 5-8 days. Coding Level of Care Code Acute Code for [facility] Fwd Diagnoses Acute psychosis F23 History of schizophrenia Z86.59 Cannabis use disorder F12.90 History of ADHD Z86.59
--- NOTE | 2024-08-02 09:00 | PC.NURSE ---
PT SITTING ON BED, NOTED TO HAVE ANIMATED SPEECH AND HAS NOTHING GOOD TO SAY ABOUT DR. MCKEON. PT STATES HE IS FORCING ME INTO REHAB SO HE CAN GET A BIG FAT CHECK. I CALLED 911 LAST NIGHT AND TOLD THEM HE WAS HOLDING ME HOSTAGE. PT WAS INFORMED THAT DR. MCKEON GETS NO KICK BACK FROM REHABS AND IS NOT AFFILIATED WITH ANY REHABS AROUND HERE. PT STATES WELL HE'S YOUR BOSS AND PAYS YOUR BILLS SO I'M SURE YOU CAN'T SAY ANYTHING. DENIES PAIN. DENIES SI/HI AND AVH AT THIS TIME. RATES ANXIETY AND DEPRESSION 0/10. PT STATES I KNOW DR. MCKEON IS TALKING ABOUT ME TO OTHER PATIENTS TOO BUT HE SAYS HE ISN'T. PT WAS EDUCATED THAT NONE OF THE STAFF CAN TALK TO PATIENTS ABOUT OTHER PATIENTS. PT IS NOTED TO HAVE FAST, RAPID ANIMATED SPEECH. PT STATES GOAL FOR THE DAY IS TO CONTACT THE PATIENT RIGHTS PEOPLE ABOUT DR. MCKEON. PT WAS INFORMED THAT IT IS HIS RIGHT TO REPORT ANYTHING AND WAS GIVEN THE PATIENT RIGHTS NUMBER. ALL QUESTIONS ANSWERED AND SUPPORT WAS VOICED.
[2024-08-02] MEDS: atomoxetine 40 mg Capsule PO (09:01)
[2024-08-02] MEDS: nicotine 4 mg lozenge MUCOUS MEM ×5 (09:02→18:50)
[2024-08-02] MEDS: sertraline 50 mg Tablet PO (09:02)
[2024-08-02] MEDS: hyDROXYzine 25 mg Capsule 50 MG PO (09:02)
[2024-08-02 14:00] VITALS: BP 137/94; PULSE 106; RESP 18; TEMP 36.7; O2SAT 98
[2024-08-02 19:20] VITALS: BP 128/78; PULSE 120; RESP 17; TEMP 37.1; O2SAT 98
[2024-08-02] MEDS: blistex lip oint 7 gm Tube 1 APPLIC TOPICAL (19:21)
[2024-08-02] MEDS: trazodone 50 mg Tablet PO (20:08)
[2024-08-02] MEDS: OLANZapine 10 mg TABLET PO (20:08)
[2024-08-03] MEDS: calcium carbonate 500 mg Chew Tablet 1000 MG PO (00:56)
--- NOTE | 2024-08-03 06:01 | PC.NURSE ---
pt ref vs resp 15
--- NOTE | 2024-08-03 06:41 | P.NPUPN_ITS ---
Subjective NPU 2 Subjective: Patient presented today reporting that he is frustrated with being kept in the hospital. We continue to discuss his continued paranoia and lingering symptoms and his challenges outside the hospital when he is on methamphetamine leading to the legal charges in the protective order that his mother has. He continues to lack insight and believes that he will be able to not do what he has done for the past 12 to 14 years just by saying that he is done and not having the structure necessary around him to help manage his mercurial nature. He denied any side effects of the medications and we continue to discuss the possibility for the need to switch to a mood stabilizer/antipsychotic with a long-acting injectable as part of the program. Mental Status Exam 2 MSE Comments: This is an slender, well-developed [place] male in hospital scrubs with adequate grooming and eye contact. No abnormal movements except for psychomotor agitation. Cooperative with exam in mild distress. Speech was slightly increased rate and normal volume. Mood described apologetic for my outburst last night, affect less irritable or guarded. Thought process was linear and mostly organized. Thought content: Patient denied suicidal or homicidal ideation, there were no delusions reported but significant signs of hyperreligious, grandiose, paranoid or persecutory delusions noted, he was full of continued conspiracies about being taken over by AI etc., he did not report visual or auditory hallucinations, but endorsed some situations likely consistent with auditory or visual hallucinations. The patient denies having suicidal thoughts, self-injurious behavior, paranoia, hearing voices, or seeing things. He does not have nightmares or flashbacks. Attention and concentration were mostly intact and memory appeared unreliable but none were formally tested. He is alert and oriented x 3. Insight, judgment and impulse control impaired. Vitals/I&O/Wt Last Vital Signs Temp 98.8 F 08/02/24 19:20 Pulse 120 H 08/02/24 19:20 Resp 17 08/02/24 19:20 BP 128/78 08/02/24 19:20 Pulse Ox 98 08/02/24 19:20 O2 Del Method Room Air 08/02/24 19:20 Data NPU 07/25/24 19:05 07/25/24 19:05 A&P Assessment and plan (1) Acute psychosis: (2) History of schizophrenia: (3) Cannabis use disorder: (4) History of ADHD: Plan This is a 29-year-old [place] male who presented on a 96-hour hold secondary to some praying in public that got noticed for its significant loudness or oddness. The patient has a history of schizophrenia, ADHD, and depression. He is currently off his medication for schizophrenia and expresses a desire to restart it. He denies having schizophrenia and believes he has a direct connection with the spiritual realm. He has a history of drug use and has been to rehab twice. He is currently unemployed and lives with others. 1. Restarted previous medications. May need to consider whether he needs to be switched to a different antipsychotic or whether he should be ultimately placed on long-acting Zyprexa if it proves to be effective. Started Strattera 40 mg p.o. daily 2. Continue every 15 minute observation. 3. Encourage individual, group and milieu therapies. 4. Obtain collateral information on what his baseline actually is. Had some success connecting with resources but none that have contemporaneous information just people at this point did not know him in the past. 5. Encourage sober living treatment after discharge at the highest level of care to which he is willing to commit. 6. UDS returned positive for cannabis and methamphetamine. 7. Will likely need a 21-day hold filed given his level of psychosis. Filed for 21-day hold. Patient placed on 21-day hold yesterday. Attestations NPU 2 Medical Necessity Statement*: Inpatient hospitalization is medically necessary and the clinically appropriate intervention at this time. We will monitor medication to make changes as indicated. His likely length of stay 5-8 days. Coding Level of Care Code Acute Code for [facility] Fwd Diagnoses Acute psychosis F23 History of schizophrenia Z86.59 Cannabis use disorder F12.90 History of ADHD Z86.59
[2024-08-03] MEDS: sertraline 50 mg Tablet PO (08:24)
[2024-08-03] MEDS: atomoxetine 40 mg Capsule PO (08:24)
[2024-08-03] MEDS: nicotine 4 mg lozenge MUCOUS MEM ×5 (08:27→19:37)
[2024-08-03 14:00] VITALS: BP 124/80; PULSE 111; RESP 18; TEMP 37.1; O2SAT 98
[2024-08-03] MEDS: OLANZapine 10 mg TABLET PO (19:31)
[2024-08-03] MEDS: trazodone 50 mg Tablet PO (19:37)
[2024-08-03 20:44] VITALS: BP 143/83; PULSE 102; RESP 18; TEMP 36.2; O2SAT 98
[2024-08-04 06:00] VITALS: BP 125/80; PULSE 84; RESP 16; TEMP 36.4; O2SAT 100
--- NOTE | 2024-08-04 07:42 | W.PM.NPUPNS ---
Subjective NPU Subjective: Patient presented today reporting that he is doing well and continues to lobby for discharge. He really struggled with self-control and ability to keep himself out of the angry conspiratorial talk per staff and direct observation. He continues on the theme of him being kept in the hospital secondary to people receiving kicked back and having extra incentive for people going to treatment programs for reasons other than getting treatment. We continue to discuss Dr. Flores coming and making independent decisions about his discharge. He continues to query about what would happen if some program said no and could he just go [place]. We continued to discuss the [place] at this point in his recovery. He continued to deny any side effects to his medication. Mental Status Exam MSE Comments: This is an slender, well-developed Ethiopian male in hospital scrubs with adequate grooming and eye contact. No abnormal movements except for psychomotor agitation. Cooperative with exam in mild to moderate distress. Speech was slightly increased rate and normal volume. Mood described as okay, affect less irritable or guarded. Thought process was linear and mostly organized. Thought content: Patient denied suicidal or homicidal ideation, there were no delusions reported but less signs of hyperreligious, grandiose, paranoid or persecutory delusions noted, he did not report visual or auditory hallucinations. The patient denies having suicidal thoughts, self-injurious behavior, paranoia, hearing voices, or seeing things. He does not have nightmares or flashbacks. Attention and concentration were mostly intact and memory appeared unreliable but none were formally tested. He is alert and oriented x 3. Insight, judgment and impulse control impaired. Vitals/I&O/Wt Last Vital Signs Temp 97.5 F L 08/04/24 06:00 Pulse 84 08/04/24 06:00 Resp 16 08/04/24 06:00 BP 125/80 08/04/24 06:00 Pulse Ox 100 08/04/24 06:00 O2 Del Method Room Air 08/02/24 19:20 Data NPU 07/25/24 19:05 07/25/24 19:05 A&P Assessment and plan (1) Acute psychosis: (2) History of schizophrenia: (3) Cannabis use disorder: (4) History of ADHD: Plan This is a 29-year-old Ethiopian male who presented on a 96-hour hold secondary to some praying in public that got noticed for its significant loudness or oddness. The patient has a history of schizophrenia, ADHD, and depression. He is currently off his medication for schizophrenia and expresses a desire to restart it. He denies having schizophrenia and believes he has a direct connection with the spiritual realm. He has a history of drug use and has been to rehab twice. He is currently unemployed and lives with others. 1. Restarted previous medications. May need to consider whether he needs to be switched to a different antipsychotic or whether he should be ultimately placed on long-acting Zyprexa if it proves to be effective. Started Strattera 40 mg p.o. daily. Will increase to 80 mg prior to discharge 2. Continue every 15 minute observation. 3. Encourage individual, group and milieu therapies. 4. Obtain collateral information on what his baseline actually is. Had some success connecting with resources and significant reports of addiction going back years and recent [facility] at his [facility] reports he has been really unstable and they are willing to help him but they need him to not be psychotic and hopefully engage in treatment so that they can assist him in his sobriety. 5. Encourage sober living treatment after discharge at the highest level of care to which he is willing to commit. 6. UDS returned positive for cannabis and methamphetamine. 7. Will likely need a 21-day hold filed given his level of psychosis. Filed for 21-day hold. Patient placed on 21-day hold yesterday. Attestations NPU Medical Necessity Statement*: Inpatient hospitalization is medically necessary and the clinically appropriate intervention at this time. We will monitor medication to make changes as indicated. His likely length of stay 3-7 days. Coding Level of Care Code Acute Code for [facility] Fwd Diagnoses Acute psychosis F23 History of schizophrenia Z86.59 Cannabis use disorder F12.90 History of ADHD Z86.59
[2024-08-04] MEDS: nicotine 4 mg lozenge MUCOUS MEM ×5 (07:45→19:35)
[2024-08-04] MEDS: sertraline 50 mg Tablet PO (08:45)
[2024-08-04] MEDS: atomoxetine 40 mg Capsule PO (08:45)
[2024-08-04 14:00] VITALS: BP 130/88; PULSE 103; RESP 16; TEMP 36.6; O2SAT 98
[2024-08-04] MEDS: trazodone 50 mg Tablet PO ×2 (20:43→22:13)
[2024-08-04] MEDS: hyDROXYzine 25 mg Capsule 50 MG PO (20:43)
[2024-08-04 20:46] VITALS: BP 131/63; PULSE 90; RESP 18; O2SAT 99
[2024-08-04] MEDS: OLANZapine 10 mg TABLET PO (20:46)
[2024-08-05 06:00] VITALS: BP 127/70; PULSE 91; RESP 17; TEMP 36.6; O2SAT 99
[2024-08-05] MEDS: atomoxetine 40 mg Capsule PO (08:12)
[2024-08-05] MEDS: sertraline 50 mg Tablet PO (08:12)
[2024-08-05] MEDS: nicotine 4 mg lozenge MUCOUS MEM ×5 (08:25→19:13)
[2024-08-05 13:56] VITALS: BP 121/79; PULSE 99; RESP 16; TEMP 37.1; O2SAT 99
--- NOTE | 2024-08-05 17:30 | P.NPUPN_ITS ---
Subjective NPU 2 Subjective: The patient is a 29-year-old male with a history of methamphetamine abuse and psychosis who continue to support the idea of wanting to get clean. He had endorsed having success with managing a plan to live and stay in [place] in order to maintain his sobriety. He had stated that he felt better on his current medications. He reported no sleep disturbance. He had acknowledged in the past having been psychotic but denied any paranoia currently. He had continued to have some thoughts about there being conspiracies but minimized them during the interview. He had expressed interest in digital therapeutic applications for treating methamphetamine dependence. He reported no current depression. He had reported a history of ADHD. Patient was redirectable on the milieu. Mental Status Exam 2 MSE Comments: This is an slender, well-developed Citizen [place] male in hospital scrubs with adequate grooming and eye contact. No abnormal movements with no psychomotor agitation or psychomotor retardation. He was cooperative with exam in mild to moderate distress. Speech was normal in rate and normal volume. Mood described as better., His affect was less irritable or guarded. Thought process was linear and mostly organized. Thought content: Patient denied suicidal or homicidal ideation, there were no delusions reported and some evidence of mild paranoia and ideas of reference He did not report visual or auditory hallucinations. The patient denies having suicidal thoughts, self-injurious behavior, paranoia, hearing voices, or seeing things. He does not have nightmares or flashbacks. Attention and concentration were mostly intact and memory appeared unreliable but none were formally tested. He is alert and oriented x 3. Insight was limited and judgment and impulse control were impaired. Vitals/I&O/Wt Last Vital Signs Temp 98.8 F 08/05/24 13:56 Pulse 99 08/05/24 13:56 Resp 16 08/05/24 13:56 BP 121/79 08/05/24 13:56 Pulse Ox 99 08/05/24 13:56 O2 Del Method Room Air 08/05/24 13:56 Weight last 48 hrs Weight 72.665 kg Data NPU 07/25/24 19:05 07/25/24 19:05 A&P Assessment and plan (1) Acute psychosis: (2) History of schizophrenia: (3) Cannabis use disorder: (4) History of ADHD: Plan This is a 29-year-old Citizen Of [place] male who presented on a 96-hour hold secondary to some praying in public that got noticed for its significant loudness or oddness. The patient has a history of schizophrenia, ADHD, and depression. He is currently off his medication for schizophrenia and expresses a desire to restart it. He denies having schizophrenia and believes he has a direct connection with the spiritual realm. He has a history of drug use and has been to rehab twice. He is currently unemployed and lives with others. 1. Restarted previous medications. May need to consider whether he needs to be switched to a different antipsychotic or whether he should be ultimately placed on long-acting Zyprexa if it proves to be effective. Continue Strattera at 40 mg p.o. daily with titration to dose of 80mg upon discharge. Continue zoloft 50mg daily and zyprexa 10mg at night as prescribed. 2. Continue every 15 minute observation. 3. Encourage individual, group and milieu therapies. 4. Obtain collateral information on what his baseline actually is. Had some success connecting with resources and significant reports of addiction going back years and recent [facility] at his [employer] reports he has been really unstable and they are willing to help him but they need him to not be psychotic and hopefully engage in treatment so that they can assist him in his sobriety. 5. Encourage sober living treatment after discharge at the highest level of care to which he is willing to commit. 6. UDS returned positive for cannabis and methamphetamine. 7. Will likely need a 21-day hold filed given his level of psychosis. Filed for 21-day hold. Patient placed on 21-day hold yesterday. Attestations NPU 2 Medical Necessity Statement*: Inpatient hospitalization is medically necessary and the clinically appropriate intervention at this time. We will monitor medication to make changes as indicated. His likely length of stay 3-5 days. Coding Level of Care Code Acute Code for [facility] Fwd Diagnoses Acute psychosis F23 History of schizophrenia Z86.59 Cannabis use disorder F12.90 History of ADHD Z86.59
[2024-08-05] MEDS: OLANZapine 10 mg TABLET PO (20:11)
[2024-08-05] MEDS: trazodone 50 mg Tablet PO (20:11)
[2024-08-05 20:12] VITALS: BP 137/97; PULSE 99; RESP 18; O2SAT 99
[2024-08-06 06:00] VITALS: BP 127/77; PULSE 102; RESP 18; TEMP 36.6; O2SAT 98
[2024-08-06] MEDS: sertraline 50 mg Tablet PO (08:24)
[2024-08-06] MEDS: atomoxetine 40 mg Capsule PO (08:24)
[2024-08-06] MEDS: nicotine 21 mg Patch 1 PATCH TRANSDERMA (08:25)
--- NOTE | 2024-08-06 09:22 | PC.NURSE ---
Patient removed nicotine patch at 0859. Patient said that he does not like how it makes him feel. This nurse disposed of patch in the appropriate receptacle. Patient can now have nicotine gum or lozenge at 1059.
[2024-08-06] MEDS: nicotine 4 mg lozenge MUCOUS MEM ×4 (11:46→21:38)
[2024-08-06 14:00] VITALS: BP 126/87; PULSE 110; RESP 16; TEMP 37.5; O2SAT 99
--- NOTE | 2024-08-06 16:51 | W.PM.NPUPNS ---
Subjective NPU Subjective: The patient is a 29-year-old male with a history of methamphetamine abuse and psychosis. The patient continued to insist on having desire to leave here today. He had reported that his interview with stephane robert did not appear to go well due to differences in cheondoism. He reported having good support from his gnosticism. He had alluded to the belief that the treatment team was keeping him here in order to burn some additional pain. He had reported no side effects and willingness to continue to take his medications. He had continued to minimize having any issues other than problems with maintaining sobriety from methamphetamine. Mental Status Exam MSE Comments: This is an slender, well-developed [place] male in hospital scrubs with adequate grooming and eye contact. No abnormal movements with mild psychomotor agitation. He was cooperative with exam in mild to moderate distress. Speech was normal in rate and normal volume. Mood described as better., His affect was more irritable today. Thought process was linear and mostly organized. Thought content: Patient denied suicidal or homicidal ideation, there were no delusions reported and some evidence of mild paranoia and ideas of reference He did not report visual or auditory hallucinations. The patient denies having suicidal thoughts, self-injurious behavior, paranoia, hearing voices, or seeing things. He does not have nightmares or flashbacks. Attention and concentration were mostly intact and memory appeared unreliable but none were formally tested. He is alert and oriented x 3. Insight was limited and judgment and impulse control were impaired. Vitals/I&O/Wt Last Vital Signs Temp 99.5 F 08/06/24 14:00 Pulse 110 H 08/06/24 14:00 Resp 16 08/06/24 14:00 BP 126/87 08/06/24 14:00 Pulse Ox 99 08/06/24 14:00 O2 Del Method Room Air 08/06/24 14:00 Weight last 48 hrs Weight 72.665 kg Data NPU 07/25/24 19:05 07/25/24 19:05 A&P Assessment and plan (1) Acute psychosis: (2) History of schizophrenia: (3) Cannabis use disorder: (4) History of ADHD: Plan This is a 29-year-old [place] male who presented on a 96-hour hold secondary to some praying in public that got noticed for its significant loudness or oddness. The patient has a history of schizophrenia, ADHD, and depression. He is currently off his medication for schizophrenia and expresses a desire to restart it. He denies having schizophrenia and believes he has a direct connection with the spiritual realm. He has a history of drug use and has been to rehab twice. He is currently unemployed and lives with others. 1. Restarted previous medications. May need to consider whether he needs to be switched to a different antipsychotic or whether he should be ultimately placed on long-acting Zyprexa if it proves to be effective. Increase Strattera to 60mg daily. Continue zoloft 50mg daily and increase zyprexa to 15mg at night as prescribed. 2. Continue every 15 minute observation. 3. Encourage individual, group and milieu therapies. 4. Obtain collateral information on what his baseline actually is. Had some success connecting with resources and significant reports of addiction going back years and recent [facility] at his gnosticism reports he has been really unstable and they are willing to help him but they need him to not be psychotic and hopefully engage in treatment so that they can assist him in his sobriety. 5. Encourage sober living treatment after discharge at the highest level of care to which he is willing to commit. 6. UDS returned positive for cannabis and methamphetamine. 7. Patient on 21 day hold. Attestations NPU Medical Necessity Statement*: Inpatient hospitalization is medically necessary and the clinically appropriate intervention at this time. We will monitor medication to make changes as indicated. His likely length of stay 3-5 days. Coding Level of Care Code Acute Code for [facility] Fwd Diagnoses Acute psychosis F23 History of schizophrenia Z86.59 Cannabis use disorder F12.90 History of ADHD Z86.59
[2024-08-06 19:39] VITALS: BP 139/81; PULSE 113; RESP 18; TEMP 37.1; O2SAT 98
[2024-08-06] MEDS: OLANZapine 10 mg TABLET 15 MG PO (20:26)
[2024-08-06] MEDS: trazodone 50 mg Tablet PO (20:26)
[2024-08-07 06:00] VITALS: BP 130/85; PULSE 96; RESP 18; TEMP 36.6; O2SAT 98
[2024-08-07] MEDS: nicotine 4 mg lozenge MUCOUS MEM ×5 (08:16→19:37)
[2024-08-07] MEDS: atomoxetine 40 mg Capsule 80 MG PO (09:03)
[2024-08-07] MEDS: sertraline 50 mg Tablet PO (09:03)
[2024-08-07 14:00] VITALS: BP 132/86; PULSE 114; RESP 17; TEMP 36.4; O2SAT 97
--- NOTE | 2024-08-07 16:26 | P.NPUPN_ITS ---
Subjective NPU 2 Subjective: The patient is a 29-year-old male with a history of methamphetamine abuse and psychosis. Patient reports he has been doing better. He had requested to leave today with a peer that had been discharged. He had not been accepted to [facility] and was agreeable to considering discharge tomorrow with his current latter day group that allowed him to stay briefly while attempting to get a job and maintain sobriety. He minimized any concerns regarding methamphetamine use. He had remained somewhat intrusive on the milieu but was ultimately more redirectable. He reported desire to remain compliant with his medications upon discharge. He had continued to minimize having any issues other than problems with maintaining sobriety from methamphetamine. Mental Status Exam 2 MSE Comments: This is an slender, well-developed [place] male in hospital scrubs with adequate grooming and eye contact. No abnormal movements with mild psychomotor activation.. He was cooperative with exam in mild to moderate distress. Speech was normal in rate and normal volume. Mood described as fine., His affect was more irritable today. Thought process was linear and mostly organized. Thought content: Patient denied suicidal or homicidal ideation, there were no delusions reported and some evidence of mild paranoia and ideas of reference He did not report visual or auditory hallucinations. The patient denies having suicidal thoughts, self-injurious behavior, paranoia, hearing voices, or seeing things. He does not have nightmares or flashbacks. Attention and concentration were mostly intact and memory appeared unreliable but none were formally tested. He is alert and oriented x 3. Insight was poor and judgment and impulse control were impaired. Vitals/I&O/Wt Last Vital Signs Temp 97.6 F 08/07/24 14:00 Pulse 114 H 08/07/24 14:00 Resp 17 08/07/24 14:00 BP 132/86 08/07/24 14:00 Pulse Ox 97 08/07/24 14:00 O2 Del Method Room Air 08/07/24 06:00 Data NPU 07/25/24 19:05 07/25/24 19:05 A&P Assessment and plan (1) Acute psychosis: (2) History of schizophrenia: (3) Cannabis use disorder: (4) History of ADHD: Plan This is a 29-year-old [place] male who presented on a 96-hour hold secondary to some praying in public that got noticed for its significant loudness or oddness. The patient has a history of schizophrenia, ADHD, and depression. He is currently off his medication for schizophrenia and expresses a desire to restart it. He denies having schizophrenia and believes he has a direct connection with the spiritual realm. He has a history of drug use and has been to rehab twice. He is currently unemployed and lives with others. 1. Restarted previous medications. Continue Strattera to 60mg daily. Continue zoloft 50mg daily and continue zyprexa 15mg at night as prescribed. 2. Continue every 15 minute observation. 3. Encourage individual, group and milieu therapies. 4. Obtain collateral information on what his baseline actually is. Had some success connecting with resources and significant reports of addiction going back years and recent [facility] at his latter day reports he has been really unstable and they are willing to help him but they need him to not be psychotic and hopefully engage in treatment so that they can assist him in his sobriety. 5. Encourage sober living treatment after discharge at the highest level of care to which he is willing to commit. 6. UDS returned positive for cannabis and methamphetamine. 7. Patient on 21 day hold; likely discharge tommorow. Attestations NPU 2 Medical Necessity Statement*: Inpatient hospitalization is medically necessary and the clinically appropriate intervention at this time. We will monitor medication to make changes as indicated. His likely length of stay 1-2 days. Coding Level of Care Code Acute Code for [facility] Fwd Diagnoses Acute psychosis F23 History of schizophrenia Z86.59 Cannabis use disorder F12.90 History of ADHD Z86.59
[2024-08-07 19:19] VITALS: BP 125/76; PULSE 103; RESP 16; TEMP 36.9; O2SAT 97
[2024-08-07] MEDS: OLANZapine 10 mg TABLET 15 MG PO (19:36)
[2024-08-07] MEDS: trazodone 50 mg Tablet PO (19:37)
[2024-08-08 06:00] VITALS: BP 130/75; PULSE 98; RESP 18; TEMP 36.8; O2SAT 99
[2024-08-08] MEDS: nicotine 4 mg lozenge MUCOUS MEM ×2 (06:50→10:56)
[2024-08-08] MEDS: sertraline 50 mg Tablet PO (08:28)
[2024-08-08] MEDS: atomoxetine 40 mg Capsule 80 MG PO (08:29)
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
[2024-08-08 11:26] VITALS: BP 130/75; PULSE 98; RESP 18; TEMP 36.8; O2SAT 99
== END 2024-08-08 12:07 | disposition home or self-care (01) | DRG 885 ==
LOC: ER 18:33 → NP 19:49
PROVIDERS: Admitting Provider Psychiatry & Neurology Psychiatry; Emergency Provider Physician Assistant; Visit Provider Psychiatry & Neurology Psychiatry
DX: F31.2 Bipolar disorder, current episode manic severe with psychotic features (principal); Z86.59 Personal history of other mental and behavioral disorders; F12.90 Cannabis use, unspecified, uncomplicated; Z91.148 Patient's other noncompliance with medication regimen for other reason; Z62.810 Personal history of physical and sexual abuse in childhood; Z56.0 Unemployment, unspecified; F41.9 Anxiety disorder, unspecified; F90.9 Attention-deficit hyperactivity disorder, unspecified type
CPT/HCPCS: 80053; 80306; 80307; 85025; 96372; 97150; 97165; 99285; J1630